=== PATIENT | male | born 1935 | race Two or more races ===

== ENCOUNTER 2021-12-23 06:07 | Emergency (ER) | payer OTHER ==
[~2021-12-23] VITALS: Ht 172.7 cm; Wt 45.4 kg
[2021-12-23] MEDS ORDERED: NASAL MIST126 ML (17:57)
[2021-12-28] MEDS ORDERED: METOPROLOL SUCC25 MG (11:27)
[2021-12-28] MEDS ORDERED: AMLODIPINE BESY10 MG (11:27)
[2021-12-28] MEDS ORDERED: FERROUS SULFAT325 M2 (11:27)
[2021-12-28] MEDS ORDERED: ATORVASTATIN CA20 MG (11:27)
[2021-12-28] MEDS ORDERED: ST. JOSEPH ASPI81 M2 (11:28)
[2021-12-28] MEDS ORDERED: B-121000 MC1 (11:28)
== END 2021-12-23 12:39 | disposition home or self-care (01) ==
LOC: ER 06:07
DX: J44.9 Chronic obstructive pulmonary disease, unspecified (principal); Z20.822 Contact with and (suspected) exposure to COVID-19; J90 Pleural effusion, not elsewhere classified; I50.9 Heart failure, unspecified